=== PATIENT | male | born 2000 | race Caucasian/White ===

== ENCOUNTER 2019-09-15 21:26 | Emergency (ER) | payer MEDICAID ==
[~2019-09-15] VITALS: Ht 175.3 cm; Wt 86.4 kg
[2019-09-15 21:36] VITALS: Ht 175.3 cm; Wt 86.4 kg
[2019-09-15] MEDS ORDERED: VIGAMOX3 ML EACH EYE (21:40)
[2019-09-15 22:51] VITALS: BP 123/81
== END 2019-09-15 22:51 | disposition home or self-care (01) ==
LOC: D.ER 21:26
DX: S00.212A Abrasion of left eyelid and periocular area, initial encounter (principal); W22.8XXA Striking against or struck by other objects, initial encounter; Y93.9 Activity, unspecified; Y92.9 Unspecified place or not applicable; H54.7 Unspecified visual loss